=== PATIENT | female | born 1950 | race Caucasian/White ===

== ENCOUNTER 2021-06-09 08:46 | Observation (INO) ==
[2021-06-09] MEDS ORDERED: TUSSIONEX PENNKINETIC SUSP PO PRN (11:15)
[2021-06-09 11:59] VITALS: BMI 30.2
[2021-06-09 12:12] LABS: BASOPHILS % (AUTO) 0.4 % (0.2-1.0); EOSINOPHILS # (AUTO) 0.1 x10^3/uL (0.0-0.2); EOSINOPHILS % (AUTO) 0.6 % (0.9-2.9); HEMATOCRIT 36.7 % (36.0-47.0); HEMOGLOBIN 12.8 g/dL (12.0-16.0); LYMPHOCYTES # (AUTO) 1.4 X10^3/uL (1.3-2.9); LYMPHOCYTES % (AUTO) 15.1 % (21.0-51.0); MEAN CORPUSCULAR HEMOGLOBIN 30.4 pg (27.0-34.0); MEAN CORPUSCULAR HGB CONC 34.8 g/dL (33.0-35.0); MEAN CORPUSCULAR VOLUME 87.5 fL (80.0-100.0); MEAN PLATELET VOLUME 8.6 fL (7.4-11.0); MONOCYTES % (AUTO) 10.1 % (0.0-13.0); NEUTROPHILS % (AUTO) 73.8 % (42.0-75.0); RED BLOOD COUNT 4.19 X10^6/uL (3.5-5.4); RED CELL DISTRIBUTION WIDTH 13.3 % (11.6-16.5); WHITE BLOOD COUNT 9.4 X10^3/uL (3.6-10.0)
[2021-06-09] MEDS ORDERED: NS 1/2 1,000 ML IV 1,000 ML IV ONE (12:26)
[2021-06-09] MEDS: LEVAQUIN PREMIX IV 500 MG 500 MG/100 ML BAG IV SCH (12:43)
[2021-06-09] MEDS: NS 1/2 1,000 ML IV 1,000 ML IV SCH (12:43)
[2021-06-09] MEDS: ROBITUSSIN DM PO SCH ×3 (12:43→21:27)
[2021-06-09] MEDS: ZOFRAN INJ 4 MG VIAL IVP PRN (12:58)
[2021-06-09 13:00] LABS: BILIRUBIN,URINE NEGATIVE (NEGATIVE); BLOOD/HEMOGLOBIN,URINE 3+ (NEGATIVE); GLUCOSE, URINE NEGATIVE (NEGATIVE); KETONES,URINE NEGATIVE (NEGATIVE); LEUKOCYTE ESTERASE ,URINE NEGATIVE (NEGATIVE); NITRITES,URINE NEGATIVE (NEGATIVE); PROTEIN,URINE NEGATIVE (NEGATIVE); UROBILINOGEN,URINE NORMAL (NORMAL)
[2021-06-09 13:13] LABS: APPEARANCE,URINE CLEAR (CLEAR); COLOR,URINE YELLOW (YELLOW)
[2021-06-09 13:14] LABS: BACTERIA,URINE TRACE /HPF (NEGATIVE); SQUAMOUS EPITHELIAL CELL,UR FEW /HPF (NEGATIVE)
[2021-06-09 14:18] LABS: ALANINE AMINOTRANSFERASE 27 Units/L (12-78); ALBUMIN 3.6 g/dL (3.4-5.0); ALKALINE PHOSPHATASE 80 Units/L (46-116); ASPARTATE AMINO TRANSFERASE 22 Units/L (15-37); BLOOD UREA NITROGEN 21 mg/dL (7-18); CALCIUM 9.1 mg/dL (8.5-10.1); CARBON DIOXIDE 24.7 mmol/L (21-32); CHLORIDE 101 mmol/L (98-107); SODIUM 137 mmol/L (136-145); TOTAL PROTEIN 7.4 g/dL (6.4-8.2); eGFR NON BLACK RACES 52 (>60)
[2021-06-09] MEDS: NORCO 7.5/325 MG TAB PO PRN (14:20)
[2021-06-09] MEDS: ROCEPHIN 1 GRAM IV PREMIX 1 G/50 ML IV.SOLN. IV SCH (15:20)
[2021-06-09] MEDS ORDERED: SOLU-Medrol 125 MG VIAL IVP ONE (15:45)
[2021-06-09] MEDS: PROTONIX INJ 40 MG VIAL IVP SCH (16:27)
--- NOTE | 2021-06-09 16:42 | RAD ---
HISTORYPneumoniaSTUDYCHEST, 1 VIEWCOMPARISONNoneFINDINGSThe lungs are clear. No pneumothorax or significant effusion.Heart size is normal.Bones are unremarkable. []IMPRESSION1. No significant abnormalityElectronically signed by: Mike Linares (Jun 09, 2021 16:42:16)
--- NOTE | 2021-06-09 18:38 | CT ---
HISTORYC/O SOBSTUDYCHEST WITH CONCOMPARISONChest radiograph 06/09/2021TECHNIQUEMultiple CT axial images of the chest were obtained with IV contrast. Coronal and sagittal images were reconstructed. Dose reduction techniques included Automated Exposure Control (AEC) and adjustment of mA and kV.FINDINGSThe heart is normal in size. Atherosclerotic calcification is present in the coronary arteries.The pulmonary artery and aorta have a normal caliber. No mediastinal mass or significant lymphadenopathy.The thyroid has a normal size and configuration. No axillary mass or significant axillary lymphadenopathy is identified.The lungs are well inflated with no pneumonia or pleural effusion. Minimal areas of interlobular septal thickening are present in the right lung and to a lesser extent the left lung. Although minimal, this is probably chronic interstitial lung disease. I do not see evidence for pulmonary edema. Minor fissure lymph node is noted. No lung mass or suspicious nodule.Diffuse decreased density of the liver is compatible with hepatic steatosis. Dilated gallbladder with no inflammation. Large nodule in the right adrenal gland measures 3.4 cm. Indeterminate Hounsfield units. Consider CT adrenal gland for further evaluation.Degenerative changes are present in the spine.IMPRESSION1. No acute finding2. Probable mild chronic interstitial lung disease3. Hepatic steatosis4. Right adrenal nodule; consider adrenal CT for further evaluationElectronically signed by: Mike Linares (Jun 09, 2021 18:37:51)
[2021-06-09] MEDS ORDERED: PULMICORT NEB TX 0.5 MG NEB ONE (19:37)
[2021-06-09] MEDS ORDERED: XOPENEX 1.25 MG/3 ML NEBULE NEB ONE (19:37)
[2021-06-09] MEDS: SOLU-Medrol 125 MG VIAL IVP SCH (21:27)
[2021-06-09] MEDS: XOPENEX 1.25 MG/3 ML NEBULE NEB SCH (21:40)
[2021-06-09] MEDS: PULMICORT NEB TX 0.5 MG NEB SCH (21:40)
[2021-06-10] MEDS ORDERED: NS 1/2 1,000 ML IV 1,000 ML IV ONE (04:41)
[2021-06-10] MEDS: NS 1/2 1,000 ML IV 1,000 ML IV SCH (05:29)
[2021-06-10] MEDS: SOLU-Medrol 125 MG VIAL IVP SCH ×3 (05:29→21:26)
[2021-06-10] MEDS: XOPENEX 1.25 MG/3 ML NEBULE NEB SCH ×2 (05:55→21:00)
[2021-06-10 06:17] LABS: BASOPHILS % (AUTO) 0 % (0.2-1.0); HEMATOCRIT 36.6 % (36.0-47.0); HEMOGLOBIN 12.7 g/dL (12.0-16.0); LYMPHOCYTES % (AUTO) 13.5 % (21.0-51.0); MEAN CORPUSCULAR HEMOGLOBIN 30.4 pg (27.0-34.0); MEAN CORPUSCULAR HGB CONC 34.5 g/dL (33.0-35.0); MEAN CORPUSCULAR VOLUME 87.9 fL (80.0-100.0); MEAN PLATELET VOLUME 8.7 fL (7.4-11.0); MONOCYTES # (AUTO) 0.1 x10^3/uL (0.3-0.8); MONOCYTES % (AUTO) 1.2 % (0.0-13.0); NEUTROPHILS # (AUTO) 6.4 x10^3/uL (2.2-4.8); NEUTROPHILS % (AUTO) 85.3 % (42.0-75.0); RED BLOOD COUNT 4.17 X10^6/uL (3.5-5.4); RED CELL DISTRIBUTION WIDTH 13.3 % (11.6-16.5); WHITE BLOOD COUNT 7.6 X10^3/uL (3.6-10.0)
[2021-06-10 06:38] LABS: ALANINE AMINOTRANSFERASE 29 Units/L (12-78); ALBUMIN 3.4 g/dL (3.4-5.0); ALKALINE PHOSPHATASE 83 Units/L (46-116); ASPARTATE AMINO TRANSFERASE 23 Units/L (15-37); BLOOD UREA NITROGEN 25 mg/dL (7-18); CARBON DIOXIDE 24.6 mmol/L (21-32); CHLORIDE 101 mmol/L (98-107); COR NA(FOR HYPERGLY) 139 mmol/L (136-145); CREATININE 1.36 mg/dL (0.55-1.02); SODIUM 137 mmol/L (136-145); TOTAL PROTEIN 7.3 g/dL (6.4-8.2); eGFR NON BLACK RACES 41 (>60)
[2021-06-10] MEDS: NORCO 7.5/325 MG TAB PO PRN ×3 (07:02→20:27)
[2021-06-10] MEDS: ROBITUSSIN DM PO SCH ×4 (08:12→20:27)
[2021-06-10] MEDS: PROTONIX INJ 40 MG VIAL IVP SCH (08:12)
[2021-06-10] MEDS: ROCEPHIN 1 GRAM IV PREMIX 1 G/50 ML IV.SOLN. IV SCH (08:12)
[2021-06-10] MEDS: LEVAQUIN PREMIX IV 500 MG 500 MG/100 ML BAG IV SCH (08:12)
--- NOTE | 2021-06-10 08:24 | RAD ---
HISTORYPneumonia with failed outpatient treatmentSTUDYChest AP [id number] chest x-ray and CT chestFINDINGSHeart size is normal. Hali are normal. Lungs are well inflated and free of acute alveolar infiltrates. Mild chronic appearing interstitial lung changes are present. No pleural effusions or pneumothoraces are present. Bony thorax is unremarkable.IMPRESSIONNo acute infiltratesMild interstitial lung changes likely chronicElectronically signed by: CLIFTON HART (Jun 10, 2021 08:23:14)
[2021-06-10] MEDS: PULMICORT NEB TX 0.5 MG NEB SCH ×2 (08:36→21:00)
[2021-06-10 08:50] LABS: CKMB % 1.4 % (<4); CREATINE KINASE MB 1.4 ng/mL (0-4.0)
--- NOTE | 2021-06-10 09:28 | DR.H&P ---
H&P History & Physical for Day of: H&P Date: 06/09/21 Chief Complaint Chief Complaint: Cough and shortness of breath with possible pneumonia. Allergies Allergies Allergy/AdvReac Type Severity Reaction Status Date / Time Penicillins Allergy Verified 06/09/21 11:34 History of Present Illness History of Present Illness: This is a 71-year-old white female who I was called about today from Gurdeep Linares, nurse practitioner who he felt had pneumonia. He has been treating her as an outpatient with antibiotics and has been unsuccessful in getting her better. I direct admitted patient under pneumonia protocol here at [facility] and started her on IV Rocephin and Levaquin. I will be ordering chest x-ray and blood cultures. Past medical history is significant for hypertension. Past Medical History Past Medical History: Hypertension Past Surgical History Surgical History: Hysterectomy Family History Family Medical History: Cancer and Coronary Artery Disease Social History Does patient currently use any type of tobacco product: No Have you used tobacco products in the last 12 months: No Type of Tobacco Use: None How many years tobacco product used: 35 Does any household member use tobacco: No Alcohol Use: None Drug Use: None Medications Home Medications: Penicillins Allergy (Verified 06/09/21 11:34) CONTINUE taking the following medications lisinopril-hydrochlorothiazide 1 tab PO DAILY 06/09/21 [History] Labs Result Diagrams: 06/10/21 05:32 06/10/21 05:32 Labs: 06/09/21 12:35 Sputum - Expectorated Sputum - Final Laboratory WBC 7.6 X10^3/uL (3.6-10.0) 06/10/21 05:32 RBC 4.17 X10^6/uL (3.5-5.4) 06/10/21 05:32 Hgb 12.7 g/dL (12.0-16.0) 06/10/21 05:32 Hct 36.6 % (36.0-47.0) 06/10/21 05:32 MCV 87.9 fL (80.0-100.0) 06/10/21 05:32 MCH 30.4 pg (27.0-34.0) 06/10/21 05:32 MCHC 34.5 g/dL (33.0-35.0) 06/10/21 05:32 RDW 13.3 % (11.6-16.5) 06/10/21 05:32 Plt Count 274 X10^3/uL (150.0-450.0) 06/10/21 05:32 MPV 8.7 fL (7.4-11.0) 06/10/21 05:32 Neut % (Auto) 85.3 % (42.0-75.0) H 06/10/21 05:32 Lymph % (Auto) 13.5 % (21.0-51.0) L 06/10/21 05:32 [place] % (Auto) 1.2 % (0.0-13.0) 06/10/21 05:32 Eos % (Auto) 0.0 % (0.9-2.9) L 06/10/21 05:32 Baso % (Auto) 0 % (0.2-1.0) L 06/10/21 05:32 Neut # (Auto) 6.4 x10^3/uL (2.2-4.8) H 06/10/21 05:32 Lymph # (Auto) 1.0 X10^3/uL (1.3-2.9) L 06/10/21 05:32 [place] # (Auto) 0.1 x10^3/uL (0.3-0.8) L 06/10/21 05:32 Eos # (Auto) 0.0 x10^3/uL (0.0-0.2) 06/10/21 05:32 Baso # (Auto) 0.0 X10^3/uL (0.0-0.1) 06/10/21 05:32 Absolute Nucleated RBC 0.0 /100WBC 06/10/21 05:32 Sodium 137 mmol/L (136-145) 06/10/21 05:32 Corrected Sodium 139 mmol/L (136-145) 06/10/21 05:32 Potassium 4.1 mmol/L (3.5-5.1) 06/10/21 05:32 Chloride 101 mmol/L (98-107) 06/10/21 05:32 Carbon Dioxide 24.6 mmol/L (21-32) 06/10/21 05:32 BUN 25 mg/dL (7-18) H 06/10/21 05:32 Creatinine 1.36 mg/dL (0.55-1.02) H 06/10/21 05:32 Est GFR (MDRD) Af Amer 50 (>60) L 06/10/21 05:32 Est GFR (MDRD) Non-Af 41 (>60) L 06/10/21 05:32 Glucose 178 mg/dL (65-99) H 06/10/21 05:32 Calcium 9.0 mg/dL (8.5-10.1) 06/10/21 05:32 Corrected Calcium TNP 06/10/21 05:32 Total Bilirubin 0.60 mg/dL (0.2-1.0) 06/10/21 05:32 AST 23 Units/L (15-37) 06/10/21 05:32 ALT 29 Units/L (12-78) 06/10/21 05:32 Alkaline Phosphatase 83 Units/L (46-116) 06/10/21 05:32 Creatine Kinase 97 Units/L (26-192) 06/10/21 05:32 CK-MB (CK-2) 1.4 ng/mL (0-4.0) 06/10/21 05:32 CK/CKMB % Calc 1.4 % (<4) 06/10/21 05:32 Troponin I High Sens 24.1 ng/L (4.0-60.0) 06/10/21 05:32 C-Reactive Protein 26.00 mg/L (0-3.0) H 06/10/21 05:32 Total Protein 7.3 g/dL (6.4-8.2) 06/10/21 05:32 Albumin 3.4 g/dL (3.4-5.0) 06/10/21 05:32 Globulin 3.9 g/dL (2.5-4.5) 06/10/21 05:32 Albumin/Globulin Ratio 0.9 Ratio (1.1-2.1) L 06/10/21 05:32 Specimen Type Clean catch urine 06/09/21 12:35 Urine Color Yellow (YELLOW) 06/09/21 12:35 Urine Appearance Clear (CLEAR) 06/09/21 12:35 Urine pH 6.0 (5.0 - 8.0) 06/09/21 12:35 Ur Specific [place] 1.015 (1.000-1.030) 06/09/21 12:35 Urine Protein Negative (NEGATIVE) 06/09/21 12:35 Urine Glucose (UA) Negative (NEGATIVE) 06/09/21 12:35 Urine Ketones Negative (NEGATIVE) 06/09/21 12:35 Urine Blood 3+ (NEGATIVE) 06/09/21 12:35 Urine Nitrite Negative (NEGATIVE) 06/09/21 12:35 Urine Bilirubin Negative (NEGATIVE) 06/09/21 12:35 Urine Urobilinogen Normal (NORMAL) 06/09/21 12:35 Ur Leukocyte Esterase Negative (NEGATIVE) 06/09/21 12:35 Urine RBC 3-5 /HPF (0-3) A 06/09/21 12:35 Urine WBC None seen /HPF (0-5) 06/09/21 12:35 Ur Squamous Epith Cells Few /HPF (NEGATIVE) 06/09/21 12:35 Urine Bacteria Trace /HPF (NEGATIVE) 06/09/21 12:35 Ur Culture Indicated? No/not indicated 06/09/21 12:35 SARS-CoV-2 (PCR) Negative (NEGATIVE) 06/09/21 11:45 Review of Systems Constitutional: Weakness Eyes: No Symptoms Reported ENT: No Symptoms Reported Respiratory: Cough, Shortness of Breath, SOB with Excertion and Sputum (Clear sputum.) Cardiovascular: Chest Pain Gastrointestinal: Nausea and Other (Epigastric pain) Genitourinary: No Symptoms Reported Musculoskeletal: Back Pain Skin: No Symptoms Reported Neurological: Other (Intermittent uncontrollable shaking.) Physical Exam Vital Signs: Temperature 98.0 F Pulse Rate [Left Radial] 92 Pulse Rate 100 Respiratory Rate 20 Blood Pressure [Left Arm] 130/71 O2 Sat by Pulse Oximetry 95 Oriented: Normal, Time, Person and Place Eyes: Normal Ear: Normal Nose: Normal Throat: Normal Respiratory: Clear Throughout Cardiovascular: Normal : Normal Auscultation: Bowel Sounds: Normal Palpation: Other (Epigastric tenderness to palpation.) Tenderness: Epigastric Skin: Normal Musculoskeletal: Normal Psychiatric: Normal Mood Description: Calm Affect: Normal Speech Pattern: Clear and Appropriate Assessment/Plan (1) SOB (shortness of breath): Narrative Support Text: The patient reports having shortness of breath and dyspnea on exertion for the last year since having covid-19. Status: Acute Plan: Monitor for worsening shortness of breath. (2) Cough productive of clear sputum: Status: Acute Plan: I will check a chest x-ray and start patient on pneumonia protocol to rule out this patient has the morning or not. (3) Hypertension: Status: Acute Plan: Monitor her blood pressure. (4) Mild dehydration: Status: Acute Plan: IV fluid hydration.
--- NOTE | 2021-06-10 09:41 | PCM.PROG ---
Progress Note Progress Note for Day of Date of Exam: 06/10/21 Subjective Subjective: This morning the patient reports that she is not feeling much better. Her chest x-ray does not reveal any infiltrate nor pneumonia. CT scan of the lungs did not show any pneumonia as well either. There was some nodules seen in the right adrenal gland. She reports a year-long history of pain over the left lower anterior ribs across to her epigastrium. She reports is worse with cough and deep breathing. Suspect it could be some underlying pleurisy. She also reports his morning of having significant dyspnea on exertion which he is unable to walk very far at all without acute getting shortness of breath. This has started since this past December or January she reports. This would be around 5-6 months in length. This morning I will check cardiac enzymes on her and EKG. Her BUN and creatinine are slightly elevated is being placed on normal saline at 125 cc an hour this morning. I am also going to check an echocardiogram on her as well today. As noted yesterday her CRP was elevated around 30 but she is down to 25 this morning. Regarding the patient's complaints, they all seem to be chronic in nature and nothing acute. Past Medical Family Social History Allergies: Allergies Penicillins Allergy (Verified 06/09/21 11:34) Vital Signs and I&O's Vital Signs: Temperature 98.0 F Pulse Rate [Left Radial] 92 Pulse Rate 100 Respiratory Rate 20 Blood Pressure [Left Arm] 130/71 O2 Sat by Pulse Oximetry 95 Intake and Output: Intake & Output 06/07/21 06/08/21 06/09/21 06/10/21 11:59 11:59 11:59 11:59 Intake Total 2101 Balance 2101 Physical Exam Oriented: Normal, Time, Person and Place Eyes: Normal Ear: Normal Nose: Normal Throat: Normal Cardiovascular: Normal : Normal Auscultation: Bowel Sounds: Normal Tenderness: Epigastric Skin: Normal Musculoskeletal: Normal Psychiatric: Normal Mood Description: Calm Affect: Normal Speech Pattern: Clear and Appropriate Laboratory and Diagnostics Result Diagrams: 06/10/21 05:32 06/10/21 05:32 Labs: 06/09/21 12:35 Sputum - Expectorated Sputum - Final Laboratory WBC 7.6 X10^3/uL (3.6-10.0) 06/10/21 05:32 RBC 4.17 X10^6/uL (3.5-5.4) 06/10/21 05:32 Hgb 12.7 g/dL (12.0-16.0) 06/10/21 05:32 Hct 36.6 % (36.0-47.0) 06/10/21 05:32 MCV 87.9 fL (80.0-100.0) 06/10/21 05:32 MCH 30.4 pg (27.0-34.0) 06/10/21 05:32 MCHC 34.5 g/dL (33.0-35.0) 06/10/21 05:32 RDW 13.3 % (11.6-16.5) 06/10/21 05:32 Plt Count 274 X10^3/uL (150.0-450.0) 06/10/21 05:32 MPV 8.7 fL (7.4-11.0) 06/10/21 05:32 Neut % (Auto) 85.3 % (42.0-75.0) H 06/10/21 05:32 Lymph % (Auto) 13.5 % (21.0-51.0) L 06/10/21 05:32 [place] % (Auto) 1.2 % (0.0-13.0) 06/10/21 05:32 Eos % (Auto) 0.0 % (0.9-2.9) L 06/10/21 05:32 Baso % (Auto) 0 % (0.2-1.0) L 06/10/21 05:32 Neut # (Auto) 6.4 x10^3/uL (2.2-4.8) H 06/10/21 05:32 Lymph # (Auto) 1.0 X10^3/uL (1.3-2.9) L 06/10/21 05:32 [place] # (Auto) 0.1 x10^3/uL (0.3-0.8) L 06/10/21 05:32 Eos # (Auto) 0.0 x10^3/uL (0.0-0.2) 06/10/21 05:32 Baso # (Auto) 0.0 X10^3/uL (0.0-0.1) 06/10/21 05:32 Absolute Nucleated RBC 0.0 /100WBC 06/10/21 05:32 Sodium 137 mmol/L (136-145) 06/10/21 05:32 Corrected Sodium 139 mmol/L (136-145) 06/10/21 05:32 Potassium 4.1 mmol/L (3.5-5.1) 06/10/21 05:32 Chloride 101 mmol/L (98-107) 06/10/21 05:32 Carbon Dioxide 24.6 mmol/L (21-32) 06/10/21 05:32 BUN 25 mg/dL (7-18) H 06/10/21 05:32 Creatinine 1.36 mg/dL (0.55-1.02) H 06/10/21 05:32 Est GFR (MDRD) Af Amer 50 (>60) L 06/10/21 05:32 Est GFR (MDRD) Non-Af 41 (>60) L 06/10/21 05:32 Glucose 178 mg/dL (65-99) H 06/10/21 05:32 Calcium 9.0 mg/dL (8.5-10.1) 06/10/21 05:32 Corrected Calcium TNP 06/10/21 05:32 Total Bilirubin 0.60 mg/dL (0.2-1.0) 06/10/21 05:32 AST 23 Units/L (15-37) 06/10/21 05:32 ALT 29 Units/L (12-78) 06/10/21 05:32 Alkaline Phosphatase 83 Units/L (46-116) 06/10/21 05:32 Creatine Kinase 97 Units/L (26-192) 06/10/21 05:32 CK-MB (CK-2) 1.4 ng/mL (0-4.0) 06/10/21 05:32 CK/CKMB % Calc 1.4 % (<4) 06/10/21 05:32 Troponin I High Sens 24.1 ng/L (4.0-60.0) 06/10/21 05:32 C-Reactive Protein 26.00 mg/L (0-3.0) H 06/10/21 05:32 Total Protein 7.3 g/dL (6.4-8.2) 06/10/21 05:32 Albumin 3.4 g/dL (3.4-5.0) 06/10/21 05:32 Globulin 3.9 g/dL (2.5-4.5) 06/10/21 05:32 Albumin/Globulin Ratio 0.9 Ratio (1.1-2.1) L 06/10/21 05:32 Specimen Type Clean catch urine 06/09/21 12:35 Urine Color Yellow (YELLOW) 06/09/21 12:35 Urine Appearance Clear (CLEAR) 06/09/21 12:35 Urine pH 6.0 (5.0 - 8.0) 06/09/21 12:35 Ur Specific [place] 1.015 (1.000-1.030) 06/09/21 12:35 Urine Protein Negative (NEGATIVE) 06/09/21 12:35 Urine Glucose (UA) Negative (NEGATIVE) 06/09/21 12:35 Urine Ketones Negative (NEGATIVE) 06/09/21 12:35 Urine Blood 3+ (NEGATIVE) 06/09/21 12:35 Urine Nitrite Negative (NEGATIVE) 06/09/21 12:35 Urine Bilirubin Negative (NEGATIVE) 06/09/21 12:35 Urine Urobilinogen Normal (NORMAL) 06/09/21 12:35 Ur Leukocyte Esterase Negative (NEGATIVE) 06/09/21 12:35 Urine RBC 3-5 /HPF (0-3) A 06/09/21 12:35 Urine WBC None seen /HPF (0-5) 06/09/21 12:35 Ur Squamous Epith Cells Few /HPF (NEGATIVE) 06/09/21 12:35 Urine Bacteria Trace /HPF (NEGATIVE) 06/09/21 12:35 Ur Culture Indicated? No/not indicated 06/09/21 12:35 SARS-CoV-2 (PCR) Negative (NEGATIVE) 06/09/21 11:45 Radiology Reviewed: Yes Plan (1) SOB (shortness of breath): Status: Acute Plan: Monitor for worsening shortness of breath. (2) Cough productive of clear sputum: Status: Acute Plan: I will check a chest x-ray and start patient on pneumonia protocol to rule out this patient has the morning or not. (3) Hypertension: Status: Acute Plan: Monitor her blood pressure. (4) Mild dehydration: Status: Acute Plan: IV fluid hydration. (5) Chest pain: Status: Acute Plan: Serial cardiac enzymes. (6) Dyspnea on exertion: Status: Acute Plan: I will check echocardiogram and EKG today. As well as cardiac enzymes. (7) Shaking: Status: Acute Narrative Support Text: Unknown etiology. (8) Epigastric pain: Status: Acute Plan: Omeprazole was started yesterday.
[2021-06-10] MEDS ORDERED: FLEXERIL TAB 10 MG PO PRN (10:55)
[2021-06-10] MEDS: LOVENOX INJ 40 MG SYR SC SCH (11:13)
[2021-06-10] MEDS: NS 1,000 ML IV 1,000 ML IV SCH ×3 (11:14→21:34)
[2021-06-10] MEDS: ZOFRAN INJ 4 MG VIAL IVP PRN (12:12)
[2021-06-10] MEDS ORDERED: RESTORIL CAP 15 MG PO PRN (20:27)
[2021-06-11 05:16] LABS: BASOPHILS % (AUTO) 0.2 % (0.2-1.0); HEMATOCRIT 33.8 % (36.0-47.0); HEMOGLOBIN 11.3 g/dL (12.0-16.0); LYMPHOCYTES # (AUTO) 0.8 X10^3/uL (1.3-2.9); LYMPHOCYTES % (AUTO) 4.7 % (21.0-51.0); MEAN CORPUSCULAR HEMOGLOBIN 29.7 pg (27.0-34.0); MEAN CORPUSCULAR HGB CONC 33.3 g/dL (33.0-35.0); MEAN CORPUSCULAR VOLUME 89.3 fL (80.0-100.0); MEAN PLATELET VOLUME 8.8 fL (7.4-11.0); MONOCYTES # (AUTO) 0.6 x10^3/uL (0.3-0.8); MONOCYTES % (AUTO) 3.5 % (0.0-13.0); NEUTROPHILS # (AUTO) 14.9 x10^3/uL (2.2-4.8); NEUTROPHILS % (AUTO) 91.6 % (42.0-75.0); RED BLOOD COUNT 3.78 X10^6/uL (3.5-5.4); RED CELL DISTRIBUTION WIDTH 13.3 % (11.6-16.5); WHITE BLOOD COUNT 16.3 X10^3/uL (3.6-10.0)
[2021-06-11] MEDS: XOPENEX 1.25 MG/3 ML NEBULE NEB SCH (05:25)
[2021-06-11 05:31] LABS: ALBUMIN 2.9 g/dL (3.4-5.0); CALCIUM 8.6 mg/dL (8.5-10.1); CARBON DIOXIDE 25.5 mmol/L (21-32); COR CA(FOR HYPOALB) 9.5 mg/dL (8.5-10.1); CREATININE 1.18 mg/dL (0.55-1.02); TOTAL PROTEIN 6.4 g/dL (6.4-8.2)
[2021-06-11] MEDS: SOLU-Medrol 125 MG VIAL IVP SCH (05:49)
[2021-06-11] MEDS: NS 1,000 ML IV 1,000 ML IV SCH ×2 (05:49→09:24)
[2021-06-11] MEDS: NORCO 7.5/325 MG TAB PO PRN (05:49)
[2021-06-11 06:20] LABS: BAND NEUTROPHILS % 2 % (0-10); PLATELET MORPHOLOGY COMMENT NORMAL (NORMAL)
[2021-06-11 07:39] VITALS: BP 115/56
[2021-06-11] MEDS: LOVENOX INJ 40 MG SYR SC SCH (08:30)
[2021-06-11] MEDS: ROCEPHIN 1 GRAM IV PREMIX 1 G/50 ML IV.SOLN. IV SCH (08:31)
[2021-06-11] MEDS: ROBITUSSIN DM PO SCH (08:31)
[2021-06-11] MEDS: LEVAQUIN PREMIX IV 500 MG 500 MG/100 ML BAG IV SCH (08:31)
[2021-06-11] MEDS: PROTONIX INJ 40 MG VIAL IVP SCH (08:31)
[2021-06-11] MEDS: PULMICORT NEB TX 0.5 MG NEB SCH (08:49)
--- NOTE | 2021-08-29 21:28 | PCM.DCPLAN ---
DISCHARGE SUMMARY Admission Date Date of Admission: 06/09/21 Discharge Date Discharge Date: 06/11/21 Admission Diagnoses (1) SOB (shortness of breath): Status: Acute (2) Cough productive of clear sputum: Status: Acute (3) Hypertension: Status: Acute (4) Mild dehydration: Status: Acute (5) Chest pain: Status: Acute (6) Dyspnea on exertion: Status: Acute (7) Shaking: Status: Acute (8) Epigastric pain: Status: Acute Discharge Diagnoses Discharge Diagnosis: 1. Shortness of breath 2. productive cough with clear sputum 3. Hypertension 4. Mild dehydration 5. Chest pain 6. Dyspnea on exertion 7. Shaking 8. Epigastric pain Discharge Medications Discharge Medications: Home Medication List lisinopril 20 mg-hydrochlorothiazide 12.5 mg tablet 1 tab PO DAILY 06/09/21 [History] cyclobenzaprine 5 mg tablet 5 mg PO Q8H PRN Muscle Spasm #30 tabs 06/11/21 [Rx] methylprednisolone 4 mg tablets in a dose pack (Medrol (Christiano)) See Rx Instructions .Route .COMPLEX #1 ea 06/11/21 [Rx] Prescriptions: cyclobenzaprine FILOMENA HOLLIS methylprednisolone [Medrol (Christiano)] FILOMENA HOLLIS Hospital Course Vital Signs: Temperature 97.8 F Pulse Rate [Left Radial] 96 Pulse Rate 89 Respiratory Rate 20 Blood Pressure [Left Arm] 115/56 O2 Sat by Pulse Oximetry 97 Latest Lab Results: Laboratory Last Values WBC 16.3 X10^3/uL (3.6-10.0) H D 06/11/21 04:41 RBC 3.78 X10^6/uL (3.5-5.4) 06/11/21 04:41 Hgb 11.3 g/dL (12.0-16.0) L 06/11/21 04:41 Hct 33.8 % (36.0-47.0) L 06/11/21 04:41 MCV 89.3 fL (80.0-100.0) 06/11/21 04:41 MCH 29.7 pg (27.0-34.0) 06/11/21 04:41 MCHC 33.3 g/dL (33.0-35.0) 06/11/21 04:41 RDW 13.3 % (11.6-16.5) 06/11/21 04:41 Plt Count 260 X10^3/uL (150.0-450.0) 06/11/21 04:41 Plt Count Comment Adequate (ADEQUATE) 06/11/21 04:41 MPV 8.8 fL (7.4-11.0) 06/11/21 04:41 Neut % (Auto) 91.6 % (42.0-75.0) H 06/11/21 04:41 Lymph % (Auto) 4.7 % (21.0-51.0) L 06/11/21 04:41 [place] % (Auto) 3.5 % (0.0-13.0) 06/11/21 04:41 Eos % (Auto) 0.0 % (0.9-2.9) L 06/11/21 04:41 Baso % (Auto) 0.2 % (0.2-1.0) 06/11/21 04:41 Neut # (Auto) 14.9 x10^3/uL (2.2-4.8) H 06/11/21 04:41 Lymph # (Auto) 0.8 X10^3/uL (1.3-2.9) L 06/11/21 04:41 [place] # (Auto) 0.6 x10^3/uL (0.3-0.8) 06/11/21 04:41 Eos # (Auto) 0.0 x10^3/uL (0.0-0.2) 06/11/21 04:41 Baso # (Auto) 0.0 X10^3/uL (0.0-0.1) 06/11/21 04:41 Absolute Nucleated RBC 0.0 /100WBC 06/11/21 04:41 Total Counted 100 06/11/21 04:41 Neutrophils % (Manual) 93 % (39-76) H 06/11/21 04:41 Band Neutrophils % 2 % (0-10) 06/11/21 04:41 Lymphocytes % (Manual) 3 % (13-43) L 06/11/21 04:41 Monocytes % (Manual) 2 % (4-9) L 06/11/21 04:41 Plt Morphology Comment Normal (NORMAL) 06/11/21 04:41 RBC Morphology Normal (NORMAL) 06/11/21 04:41 Sodium 139 mmol/L (136-145) 06/11/21 04:41 Corrected Sodium 140 mmol/L (136-145) 06/11/21 04:41 Potassium 4.6 mmol/L (3.5-5.1) 06/11/21 04:41 Chloride 105 mmol/L (98-107) 06/11/21 04:41 Carbon Dioxide 25.5 mmol/L (21-32) 06/11/21 04:41 BUN 24 mg/dL (7-18) H 06/11/21 04:41 Creatinine 1.18 mg/dL (0.55-1.02) H 06/11/21 04:41 Est GFR (MDRD) Af Amer 58 (>60) L 06/11/21 04:41 Est GFR (MDRD) Non-Af 48 (>60) L 06/11/21 04:41 Glucose 158 mg/dL (65-99) H 06/11/21 04:41 Calcium 8.6 mg/dL (8.5-10.1) 06/11/21 04:41 Corrected Calcium 9.5 mg/dL (8.5-10.1) 06/11/21 04:41 Total Bilirubin 0.30 mg/dL (0.2-1.0) 06/11/21 04:41 AST 16 Units/L (15-37) 06/11/21 04:41 ALT 26 Units/L (12-78) 06/11/21 04:41 Alkaline Phosphatase 67 Units/L (46-116) 06/11/21 04:41 Creatine Kinase 97 Units/L (26-192) 06/10/21 05:32 CK-MB (CK-2) 1.4 ng/mL (0-4.0) 06/10/21 05:32 CK/CKMB % Calc 1.4 % (<4) 06/10/21 05:32 Troponin I High Sens 24.1 ng/L (4.0-60.0) 06/10/21 05:32 C-Reactive Protein 26.00 mg/L (0-3.0) H 06/10/21 05:32 Total Protein 6.4 g/dL (6.4-8.2) 06/11/21 04:41 Albumin 2.9 g/dL (3.4-5.0) L 06/11/21 04:41 Globulin 3.5 g/dL (2.5-4.5) 06/11/21 04:41 Albumin/Globulin Ratio 0.8 Ratio (1.1-2.1) L 06/11/21 04:41 Specimen Type Clean catch urine 06/09/21 12:35 Urine Color Yellow (YELLOW) 06/09/21 12:35 Urine Appearance Clear (CLEAR) 06/09/21 12:35 Urine pH 6.0 (5.0 - 8.0) 06/09/21 12:35 Ur Specific [place] 1.015 (1.000-1.030) 06/09/21 12:35 Urine Protein Negative (NEGATIVE) 06/09/21 12:35 Urine Glucose (UA) Negative (NEGATIVE) 06/09/21 12:35 Urine Ketones Negative (NEGATIVE) 06/09/21 12:35 Urine Blood 3+ (NEGATIVE) 06/09/21 12:35 Urine Nitrite Negative (NEGATIVE) 06/09/21 12:35 Urine Bilirubin Negative (NEGATIVE) 06/09/21 12:35 Urine Urobilinogen Normal (NORMAL) 06/09/21 12:35 Ur Leukocyte Esterase Negative (NEGATIVE) 06/09/21 12:35 Urine RBC 3-5 /HPF (0-3) A 06/09/21 12:35 Urine WBC None seen /HPF (0-5) 06/09/21 12:35 Ur Squamous Epith Cells Few /HPF (NEGATIVE) 06/09/21 12:35 Urine Bacteria Trace /HPF (NEGATIVE) 06/09/21 12:35 Ur Culture Indicated? No/not indicated 06/09/21 12:35 SARS-CoV-2 (PCR) Negative (NEGATIVE) 06/09/21 11:45 Hospital Course: The patient was treated with IV antibiotics and nebs and IV fluid over the next couple days and she improved dramatically. She did report some muscle aches and spasms at the end of the hospital stay so we prescribed her cyclobenzaprine as a discharge med to help her with that. Also gave her a Medrol Dosepak as I think a lot of her symptoms were viral in origin. Patient's shortness of breath dramatically improved as well as her dyspnea on exertion and her epigastric pain had resolved. As well as her chest pain.
== END 2021-06-11 11:15 | disposition home or self-care (01) ==
LOC: MED/SURG 08:47 → INTOOBSV 08:47
PROVIDERS: ADMIT Family Medicine; ATTEND Family Medicine
DX: R79.82 Elevated C-reactive protein (CRP); Z20.822 Contact with and (suspected) exposure to COVID-19; J15.1 Pneumonia due to Pseudomonas; R07.89 Other chest pain; R10.13 Epigastric pain; I10 Essential (primary) hypertension; K76.0 Fatty (change of) liver, not elsewhere classified; Z66 Do not resuscitate; E86.0 Dehydration; R94.31 Abnormal electrocardiogram [ECG] [EKG]; R25.1 Tremor, unspecified; R06.02 Shortness of breath

== ENCOUNTER 2024-10-09 12:09 | Observation (INO) ==
[2024-10-09] MEDS: PROTONIX INJ 40 MG VIAL IVP SCH (15:59)
--- NOTE | 2024-10-09 15:59 | RAD ---
EXAMINATION: CHEST, 1 VIEW HISTORY: CHF ; . COMPARISON STUDY: 06/10/2021 TECHNIQUE: A single view of the chest was obtained. FINDINGS: The patient is rotated to the right. Previous median sternotomy. Heart size is normal. No acute infiltrates. There is no pneumothorax. Hilar and mediastinal structures and bony structures are unremarkable. . IMPRESSION: No acute process in the chest. THIS IS AN ELECTRONICALLY VERIFIED FINAL REPORT 10/09/2024 3:57 PM - Electronically signed by Hardik Munguia MD
[2024-10-09] MEDS: NS 1,000 ML IV 1,000 ML IV SCH (16:01)
[2024-10-09 16:15] LABS: MEAN PLATELET VOLUME 8.9 fL (7.4-11.0); RED CELL DISTRIBUTION WIDTH 18.4 % (11.6-16.5)
[2024-10-09 16:32] LABS: COR CA(FOR HYPOALB) 10.2 mg/dL (8.5-10.1); COR NA(FOR HYPERGLY) 140.0 mmol/L (136-145); CREATININE 2.13 mg/dL (0.55-1.02); eGFR NON BLACK RACES 24.0 (>60)
[2024-10-09 17:15] VITALS: BMI 31.6
--- NOTE | 2024-10-09 17:29 | DR.H&P ---
H&P History & Physical for Day of: H&P Date: 10/09/24 Chief Complaint Chief Complaint: abdominal pain, n/v History of Present Illness History of Present Illness: PT IS 74 WF, DIRECT ADMIT WITH ABDOMINAL PAIN, RIGHT SIDE WITH CO "CANT KEEP ANYTHING" DOWN. PT FAMILY REPORT SHE IS VERY WEAK AND DEHYDRATED. PT HAS PMH OF CAD WITH BYPASS IN JULY. PT HAD ABNORMAL OP LABS WITH ELEVATED WBC AND BILIRUBIN. PT ADMITTED FOR TREATMENT AND EVALUATION. Past Medical History Past Medical History: Hypertension Past Surgical History Surgical History: Appendectomy and Hysterectomy Family History Family Medical History: Cancer, [place] and Hypertension Social History Does any household member use tobacco: No Alcohol Use: None Drug Use: None Medications Home Medications: Home Medications Medication Instructions Recorded Confirmed Type apixaban 5 mg tablet (Eliquis) 5 mg PO BID 10/09/24 History aspirin 81 mg tablet 81 mg PO QDAY 10/09/2410/09 History atorvastatin 40 mg tablet 40 mg PO DAILY 10/09/2409/27 History digoxin 125 mcg (0.125 mg) tablet 125 mcg PO Q OTHER D AY 10/09/24 10/09/24 History furosemide 40 mg tablet 40 mg PO DAILY 10/09/2409/27 History meclizine 25 mg tablet 25 mg PO Q6H PRN 10/09/24 History metoprolol tartrate 25 mg tablet 25 mg PO TID 10/09/24 10/09/24 History ondansetron 8 mg disintegrating 8 mg PO Q8H PRN nausea /vomiting 10/09/24 10/09/24 History tablet potassium chloride 20 mEq 40 meq PO QDAY 10/09/2409/27 History tablet,extended release(part/cryst) sennosides 8.6 mg tablet (senna) 8.6 mg PO BID 5 10/09/24 History tramadol 50 mg tablet 50 mg PO Q8H PRN pain 10/09/24 History Allergies Allergies Allergy/AdvReac Type Severity Reaction Status Date / Time penicillin G Allergy Unknown Hives Verified 09/11/15 11:17 codeine Allergy Verified 10/09/24 16:01 Penicillins Allergy Verified 06/09/21 11:34 adhesive tape (tape AdvReac Verified 10/09/24 16:01 (adhesive)) Labs 10/09/24 16:07 10/09/24 16:07 Labs: Laboratory WBC 13.8 X10^3/uL (3.6-10.0) H 10/09/24 16:07 RBC 4.84 X10^6/uL (3.5-5.4) 10/09/24 16:07 Hgb 12.8 g/dL (12.0-16.0) 10/09/24 16:07 Hct 41.0 % (36.0-47.0) 10/09/24 16:07 MCV 84.7 fL (80.0-100.0) 10/09/24 16:07 MCH 26.4 pg (27.0-34.0) L 10/09/24 16:07 MCHC 31.1 g/dL (33.0-35.0) L 10/09/24 16:07 RDW 18.4 % (11.6-16.5) H 10/09/24 16:07 Plt Count 393 X10^3/uL (150.0-450.0) 10/09/24 16:07 MPV 8.9 fL (7.4-11.0) 10/09/24 16:07 Neut % (Auto) 69.4 % (42.0-75.0) 10/09/24 16:07 Lymph % (Auto) 21.7 % (21.0-51.0) 10/09/24 16:07 [place] % (Auto) 8.1 % (0.0-13.0) 10/09/24 16:07 Eos % (Auto) 0.4 % (0.9-2.9) L 10/09/24 16:07 Baso % (Auto) 0.4 % (0.2-1.0) 10/09/24 16:07 Neut # (Auto) 9.6 x10^3/uL (2.2-4.8) H 10/09/24 16:07 Lymph # (Auto) 3.0 X10^3/uL (1.3-2.9) H 10/09/24 16:07 [place] # (Auto) 1.1 x10^3/uL (0.3-0.8) H 10/09/24 16:07 Eos # (Auto) 0.1 x10^3/uL (0.0-0.2) 10/09/24 16:07 Baso # (Auto) 0.1 X10^3/uL (0.0-0.1) 10/09/24 16:07 Absolute Nucleated RBC 0.0 /100WBC 10/09/24 16:07 Sodium 139 mmol/L (136-145) 10/09/24 16:07 Corrected Sodium 140 mmol/L (136-145) 10/09/24 16:07 Potassium 4.9 mmol/L (3.5-5.1) 10/09/24 16:07 Chloride 102 mmol/L (98-107) 10/09/24 16:07 Carbon Dioxide 32.6 mmol/L (21-32) H 10/09/24 16:07 BUN 34 mg/dL (7-18) H 10/09/24 16:07 Creatinine 2.13 mg/dL (0.55-1.02) H 10/09/24 16:07 Est GFR (MDRD) Af Amer 29 (>60) L 10/09/24 16:07 Est GFR (MDRD) Non-Af 24 (>60) L 10/09/24 16:07 Glucose 127 mg/dL (65-99) H 10/09/24 16:07 Calcium 9.5 mg/dL (8.5-10.1) 10/09/24 16:07 Corrected Calcium 10.2 mg/dL (8.5-10.1) H 10/09/24 16:07 Total Bilirubin 2.80 mg/dL (0.2-1.0) H 10/09/24 16:07 AST 32 Units/L (15-37) 10/09/24 16:07 ALT 19 Units/L (12-78) 10/09/24 16:07 Alkaline Phosphatase 123 Units/L (46-116) H 10/09/24 16:07 C-Reactive Protein 158.70 mg/L (0-3.0) H 10/09/24 16:07 Total Protein 7.7 g/dL (6.4-8.2) 10/09/24 16:07 Albumin 3.1 g/dL (3.4-5.0) L 10/09/24 16:07 Globulin 4.6 g/dL (2.5-4.5) H 10/09/24 16:07 Albumin/Globulin Ratio 0.7 Ratio (1.1-2.1) L 10/09/24 16:07 Amylase 84 Units/L (25-115) 10/09/24 16:07 Lipase 116 Units/L (16-77) H 10/09/24 16:07 Review of Systems Constitutional: Chills and Weakness Eyes: No Symptoms Reported Respiratory: Shortness of Breath Cardiovascular: No Symptoms Reported Gastrointestinal: Nausea, Vomiting, Abdominal Pain and Diarrhea Genitourinary: Dysuria Musculoskeletal: No Symptoms Reported Skin: No Symptoms Reported Neurological: Weakness Physical Exam Vital Signs: Vital Signs Temperature 97.8 F Pulse Rate [Radial] 86 Respiratory Rate 17 Blood Pressure [Left Arm] 149/73 O2 Sat by Pulse Oximetry 97 Oriented: Normal Eyes: Normal Ear: Normal Nose: Normal Throat: Dry Respiratory: RLL Diminished and LLL Diminished Cardiovascular: Normal Auscultation: Bowel Sounds: Normal Palpation: Normal Tenderness: Normal Skin: Decreased Turgur Musculoskeletal: Back:Lumbar Psychiatric: Normal Affect: Normal Speech Pattern: Clear and Appropriate Assessment/Plan (1) Abdominal pain: Status: Acute Plan: ADMIT, IV HYDRATION, NPO GB BID PPI THERAPY, AMYLASE AND LIPASE ON ADMISSION VERIFY HOME MEDICATIONS PAIN CONTROL, CARDIAC MONITORING BP CONTROL, I&OS (2) Pancreatitis: Status: Acute (3) Hypertension: Status: Acute (4) Renal failure: Status: Acute
--- NOTE | 2024-10-09 17:34 | US ---
EXAM: RIGHT UPPER QUADRANT ULTRASOUND HISTORY: RT ABD PAIN, N/V, FOOD INTOLERANCE; COMPARISON: None. TECHNIQUE: Ultrasound of the right upper quadrant was performed. Color and spectral doppler imaging was utilized. FINDINGS: LIVER: Heterogenous increased echotexture pattern suggesting fatty infiltration or hepatocellular disease. Liver measures 13.5 cm longitudinal. GALLBLADDER: Gallbladder wall thickness measures 2.6 mm which is within normal limits. Stones were identified within the gallbladder. No evidence for pericholecystic fluid. mri special procedures technologist reports a positive sonographic Moreno's sign. PANCREAS: Obscured by bowel gas. COMMON BILE DUCT: Obscured by bowel gas. RIGHT KIDNEY: The right kidney measures 9.2 cm longitudinal. Normal echogenicity. No hydronephrosis or solid masses. 25 mm simple cyst of the right kidney was noted. VESSELS: Normal hepatopetal flow in the portal vein on color doppler imaging. ASCITES: None IMPRESSION: Stones were identified within the gallbladder. No evidence for gallbladder wall thickening or pericholecystic fluid therefore no ultrasound findings of cholecystitis. mri special procedures technologist reports a positive sonographic Moreno's sign, correlate clinically. Common bile duct was not able to be identified due to bowel gas. Heterogenous increased echotexture of the liver suggesting fatty infiltration or hepatocellular disease. Pancreas was obscured by bowel gas. 25 mm simple cyst of the right kidney. THIS IS AN ELECTRONICALLY VERIFIED FINAL REPORT 10/09/2024 5:31 PM - Electronically signed by Paolo Irvin DO
[2024-10-09 17:44] LABS: BLOOD/HEMOGLOBIN,URINE 5+ (NEGATIVE); LEUKOCYTE ESTERASE ,URINE 1+ (NEGATIVE); NITRITES,URINE NEGATIVE (NEGATIVE)
[2024-10-09 17:47] LABS: APPEARANCE,URINE CLOUDY (CLEAR)
[2024-10-09] MEDS: NYSTATIN POWDER TOP SCH (17:50)
[2024-10-09 17:57] LABS: SQUAMOUS EPITHELIAL CELL,UR MODERATE /HPF (NEGATIVE)
[2024-10-09] MEDS: ROCEPHIN VIAL 1 GRAM 1 G in NS 100 ML IV 100 ML IV SCH (20:41)
[2024-10-10 05:55] LABS: MEAN PLATELET VOLUME 9.3 fL (7.4-11.0); RED CELL DISTRIBUTION WIDTH 18.2 % (11.6-16.5)
[2024-10-10 06:18] LABS: COR CA(FOR HYPOALB) 10.1 mg/dL (8.5-10.1); CREATININE 1.82 mg/dL (0.55-1.02); eGFR NON BLACK RACES 29 (>60)
[2024-10-10 07:54] VITALS: RESP 20
[2024-10-10] MEDS: ELIQUIS PO SCH (08:45)
[2024-10-10] MEDS: LOPRESSOR TAB 25 MG PO SCH (08:46)
[2024-10-10] MEDS: LIPITOR TAB 40 MG PO SCH (08:46)
[2024-10-10] MEDS: SENOKOT PO SCH (08:47)
[2024-10-10] MEDS: LANOXIN or DIGITEK PO SCH (09:46)
[2024-10-10] MEDS: ULTRAM PO PRN (12:52)
[2024-10-10 15:21] VITALS: BP 113/58; PULSE 83; TEMP 98.1; O2SAT 97
--- NOTE | 2024-10-10 16:08 | RAD ---
EXAM: CHEST, 1 VIEW HISTORY: GALLSTONES, ABDOMINAL PAIN ; HTN, [place], COPD SX: APPY, HYST, TRIPLE BYPASS COMPARISON: 10/09/2024 TECHNIQUE: AP portable FINDINGS: Median sternotomy wires. Stable cardiac silhouette. No focal consolidation, large pleural effusion, or visible pneumothorax. IMPRESSION: No acute cardiopulmonary findings. THIS IS AN ELECTRONICALLY VERIFIED FINAL REPORT 10/10/2024 4:04 PM - Electronically signed by Brady Hernández MD
--- NOTE | 2024-10-10 16:47 | MRI ---
EXAM: MRI ABDOMEN WITHOUT CONTRAST WITH MRCP HISTORY: Gallstones, Abdominal pain; . COMPARISON: Ultrasound dated 10/09/2024; CT chest dated 08/07/2022. TECHNIQUE: Using a phased-array coil, MRI of the abdomen was obtained without contrast. In addition to standard imaging, MRCP sequences were acquired including 3D reconstructions. FINDINGS: Gallbladder is mildly distended with multiple dependent low signal gallstones. No significant gallbladder wall thickening or pericholecystic fluid. Dilated common bile duct measures 10 mm. There are multiple low signal filling defects in the distal common bile duct that measure up to 7 mm, compatible with choledocholithiasis. Mild intrahepatic biliary dilatation. Homogeneous liver parenchyma. Unremarkable spleen. Atrophic pancreas. No pancreatic duct dilatation or peripancreatic inflammation. Heterogeneous right adrenal 4 x 3.4 cm nodule previously measured 3.4 x 2.5 cm. Simple benign right renal cyst. No hydronephrosis. No abnormally distended bowel loops. IMPRESSION: 1. Cholelithiasis and choledocholithiasis with mild biliary dilatation. 2. Heterogeneous 4 x 3.4 cm right adrenal nodule has mildly increased since 2022. Recommend multiphase CT or MRI abdomen without and with IV contrast for further characterization. THIS IS AN ELECTRONICALLY VERIFIED FINAL REPORT 10/10/2024 4:43 PM - Electronically signed by Brady Hernández MD
[2024-10-10] MEDS: TYLENOL 325 MG TAB PO PRN (16:51)
[2024-10-10] MEDS: ZOFRAN INJ 4 MG VIAL IVP PRN (19:40)
== END 2024-10-10 19:40 | disposition short-term general hospital (02) ==
LOC: MED/SURG
PROVIDERS: ADMIT Internal Medicine; ATTEND Internal Medicine
DX: R11.2 Nausea with vomiting, unspecified; Z79.01 Long term (current) use of anticoagulants; E86.0 Dehydration; R10.84 Generalized abdominal pain; K85.80 Other acute pancreatitis without necrosis or infection; R79.82 Elevated C-reactive protein (CRP); N17.8 Other acute kidney failure; J90 Pleural effusion, not elsewhere classified; I25.810 Atherosclerosis of coronary artery bypass graft(s) without angina pectoris; N28.1 Cyst of kidney, acquired; R26.89 Other abnormalities of gait and mobility; J44.9 Chronic obstructive pulmonary disease, unspecified; R53.1 Weakness; E11.65 Type 2 diabetes mellitus with hyperglycemia; Z03.818 Encounter for observation for suspected exposure to other biological agents ruled out; R94.4 Abnormal results of kidney function studies; I10 Essential (primary) hypertension; N39.0 Urinary tract infection, site not specified; E80.6 Other disorders of bilirubin metabolism; R06.02 Shortness of breath; K80.80 Other cholelithiasis without obstruction